=== PATIENT | male | born 1985 | race Caucasian/White ===

== ENCOUNTER 2019-01-10 21:59 | Emergency (ER) | payer OTHER ==
[~2019-01-10] VITALS: Ht 177.8 cm; Wt 113.4 kg
[2019-01-12 07:06] LABS: HIV SCREEN 4TH GENERATION WRFX Non Reactive (Non Reactive)
[2019-01-12 08:06] LABS: HCV ANTIBODY 0.1 (0.0-0.9)
== END 2019-01-10 22:43 | disposition home or self-care (01) ==
LOC: ER 21:59
PROVIDERS: Emergency Medicine
DX: Z77.21 Contact with and (suspected) exposure to potentially hazardous body fluids (principal)
CPT/HCPCS: 36415; 84460; 86317; 86803; 87389; 99283